=== PATIENT | male | born 1990 | race Caucasian/White ===

== ENCOUNTER 2017-01-04 19:09 | Emergency (ER) | payer OTHER ==
[~2017-01-04] VITALS: Ht 182.9 cm; Wt 71.0 kg
[2017-01-04 19:32] VITALS: BP 116/69
== END 2017-01-04 20:29 | disposition home or self-care (01) ==
LOC: ED 20:23
DX: Z76.0 Encounter for issue of repeat prescription (principal)
CPT/HCPCS: 99283